=== PATIENT | male | born 1975 | race African-American/Black ===

== ENCOUNTER 2024-12-24 09:05 | Emergency (ER) | payer BC, SELFPAY ==
[2024-12-24 09:13] VITALS: BP 143/98; PULSE 60; O2SAT 98
[2024-12-24 09:17] VITALS: BP 143/98; PULSE 66; RESP 18; TEMP 36.6; O2SAT 97; BMI 23.3
--- NOTE | 2024-12-24 09:18 | ECG_ITS ---
APPROVED REPORT Exam: Resting ECG HR:57 bpm ECG Measurements Heart Rate 57 AXES DE 159 P 73 QRSd 100 QRS 41 QT 399 T 58 QTc 392 Conclusion SINUS BRADYCARDIA INCOMPLETE RIGHT BUNDLE BRANCH BLOCK [90+ ms QRS DURATION, TERMINAL R IN V1/V2, 40+ ms S IN I/aVL/V4/V5/V6] No STEMI Electronically signed by : SANJUANA GUERRA, 12/24/2024 17:12:47
--- NOTE | 2024-12-24 09:28 | CT_ITS ---
PROCEDURE INFORMATION: Exam: CT Abdomen And Pelvis With Contrast Exam date and time: 12/24/2024 9:55 AM Age: 49 years old Clinical indication: Abdominal pain; Additional info: Lower abd pain/diarrhea TECHNIQUE: Imaging protocol: Computed tomography of the abdomen and pelvis with contrast. Radiation optimization: All CT scans at this facility use at least one of these dose optimization techniques: automated exposure control; mA and/or kV adjustment per patient size (includes targeted exams where dose is matched to clinical indication); or iterative reconstruction. Contrast material: ISOVUE; Contrast volume: 75 ml; Contrast route: IV; COMPARISON: No relevant prior studies available. FINDINGS: Lungs: Calcified 1.6 cm granuloma in the left lower lobe posterior to the left ventricle. No airspace consolidation, nodules, or pleural effusions. Liver: No mass. No evidence of fat deposition. No surrounding fluid. Gallbladder and biliary ducts: No calcified stones or wall thickening. No ductal dilation. Pancreas: No masses. No ductal dilation. Spleen: No splenomegaly. No masses or surrounding fluid. Adrenal glands: No mass. Kidneys and ureters: No hydronephrosis, calcified stones, or masses. Stomach and bowel: No intestinal masses, bowel wall thickening, or abnormal dilatation. Appendix: No evidence of appendicitis. Intraperitoneal space: No free air. No masses or significant fluid collection. Vasculature: No abdominal aortic aneurysm. No other significant abnormalities. Lymph nodes: No enlarged lymph nodes. Urinary bladder: No masses or asymmetric wall thickening. Reproductive: No abnormalities as visualized. Bones/joints: No fractures or focal bone lesions. Akon-rj-owvypvqp degenerative disc disease at L4-L5 and L5-S1 causes no spinal stenosis. Soft tissues: No masses or other abnormalities. IMPRESSION: 1. No acute findings in the abdomen and pelvis. No GI tract abnormalities. 2. Calcified granuloma in the left lower lobe.
--- OUTSIDE RECORDS SUMMARY | 2024-12-24 09:28 | XMS_ITS | Encounter Summary ---
Author Organization [employer] ([place], [place], [place], [place]) Address [address] [place] [address] Care Team Providers Care Order To Delivery Supervisor Name Role Phone Mahesh Sanford MD Primary Care Provider [phone] Encounter Details Date Type Department Care Team (Late st Contact Info) Description 08/16/2021 Transcribed Document [facility] [place] [facility] [address] [place] [address] ProviderFred MD [address] [place], [place] [id number] Social History Tobacco Use Types Packs/Day Years Used Date Smoking Tobacco: Never Assessed Food Insecurity Answer Date Recorded Food run out past 12 months Not on file 06/15 Food did not last past 12 months Not on file 07/03/2023 Employment Answer Date Recorded Help finding and keeping a job Not on file 0 07/03/2023 Family and Community Support Answer Keny e Recorded Help with Day to Day Activities Not on file 07/03/2023 Feeling Lonely or Isolated Not on file 07/03 Educational Attainment Answer Date Ignacio rded Speak language other than Eritrean at home Not on file 07/03/2023 Want help with school or training Not on file 07/03/2023 Substance Use Answer Date Recorded Used prescription meds for non-medical reasons N ot on file 07/03/2023 Used illegal drugs past 12 months Not on file 07/03/2023 Sex and Gender Information Value Date Recorded Sex Assigned at Not on file Legal Sex Male 6:06 PM CDT Gender Identity Not on file Sexual Orientation Not on file documented as of this encounter Miscellaneous Notes * Cerner Conversion Note - Historical ProviderMD - 08/16/2021 7:58 AM BUSINESS OFFICE DIRECTOR [facility] [address] [place], [place] [id number] SCOTT SUE :1975 Visit Time:08/16/2021 What to do next Instructions From Your Care Team Diet after Discharge: Resume usual diet as tolerated, Do not drink any alcoholic beverages, Activity after Discharge: Rest and relax today, No strenuous activity Driving after Discharge: Do not drive for 24 hours May Return to Work/School: Tomorrow Notify Provider of: Questions or Concerns, pain, bleeding or fever of 101 Copy of procedure report given to patient If biopsies were taken, office will call or mail results within 7-10 days Follow-Up Appointments Follow Up with RODNEY CLARK MD When Only if needed Where: Medications What How Much When Instructions Next Dose cholecalciferol (Vitamin D3) Weekly Take your medications faithfully. Do NOT skip medication. Do NOT stop taking medications without the direction of a physician. Carry a list of your medications with you at all times, and take this medication list with you to your first follow up visit. Report any side effects. Avoid herbal remedies unless discussed with your physician. As part of your treatment plan, your physician may have prescribed a limited course of a controlled substance. This medication may be given to help people with moderate or severe pain or for other medical conditions, but there are risks involved with treatment. Common side effects may include nausea, constipation, drowsiness, sweating, itching, dry mouth, and rash. More serious side effects may include cognitive and motor impairment, like problems with thinking, concentrating, alertness, and movement (e.g. slowed reflexes), and driving and operating heavy machinery can be dangerous. It is important for you to talk to your physician if you have these side effects or questions. These controlled substances can produce physical dependence and be habit-forming if taken for an extended period of time, which means that the body has gotten used to them and may experience withdrawal symptoms if they are abruptly stopped. Withdrawal symptoms can include runny nose, sweating, goose bumps, diarrhea, abdominal cramping, rapid heartbeat, difficulty sleeping, and nervousness. Please dispose of unused and medications per pharmacy guidance. Education Materials General Anesthesia, Adult General anesthesia is the use of medicines to make a person go to sleep (unconscious) for a medical procedure. General anesthesia must be used for certain procedures, and is often recommended for procedures that: ??? Last a long time. ??? Require you to be still or in an unusual position. ??? Are major and can cause blood loss. The medicines used for general anesthesia are called general anesthetics. As well as making you unconscious for a certain amount of time, these medicines: ??? Prevent pain. ??? Control your blood pressure. ??? Relax your muscles. Tell a health care provider about: ??? Any allergies you have. ??? All medicines you are taking, including vitamins, herbs, eye drops, creams, and rnji-bcg-nktvlcx medicines. ??? Any problems you or family members have had with anesthetic medicines. ??? Types of anesthetics you have had in the past. ??? Any blood disorders you have. ??? Any surgeries you have had. ??? Any medical conditions you have. ??? Any recent upper respiratory, chest, or ear infections. ??? Any history of: ? Heart or lung conditions, such as heart failure, sleep apnea, asthma, or chronic obstructive pulmonary disease (COPD). ? service. ? Depression or anxiety. ??? Any tobacco or drug use, including marijuana or alcohol use. ??? Whether you are or may be . What are the risks? Generally, this is a safe procedure. However, problems may occur, including: ??? Allergic reaction. ??? Lung and heart problems. ??? Inhaling food or liquid from the stomach into the lungs (aspiration). ??? Nerve injury. ??? Dental injury. ??? Air in the bloodstream, which can lead to stroke. ??? Extreme agitation or confusion (delirium) when you wake up from the anesthetic. ??? Waking up during your procedure and being unable to move. This is rare. These problems are more likely to develop if you are having a major surgery or if you have an advanced or serious medical condition. You can prevent some of these complications by answering all of your health care provider's questions thoroughly and by following all instructions before your procedure. General anesthesia can cause side effects, including: ??? Nausea or vomiting. ??? A sore throat from the breathing tube. ??? Hoarseness. ??? Wheezing or coughing. ??? Shaking chills. ??? Tiredness. ??? Body aches. ??? Anxiety. ??? Sleepiness or drowsiness. ??? Confusion or agitation. What happens before the procedure? Staying hydrated Follow instructions from your health care provider about hydration, which may include: ??? Up to 2 hours before the procedure ??? you may continue to drink clear liquids, such as water, clear fruit juice, black coffee, and plain tea. Eating and drinking restrictions Follow instructions from your health care provider about eating and drinking, which may include: ??? 8 hours before the procedure ??? stop eating heavy meals or foods such as meat, fried foods, or fatty foods. ??? 6 hours before the procedure ??? stop eating light meals or foods, such as toast or cereal. ??? 6 hours before the procedure ??? stop drinking milk or drinks that contain milk. ??? 2 hours before the procedure ??? stop drinking clear liquids. Medicines Ask your health care provider about: ??? Changing or stopping your regular medicines. This is especially important if you are taking diabetes medicines or blood thinners. ??? Taking medicines such as aspirin and ibuprofen. These medicines can thin your blood. Do not take these medicines unless your health care provider tells you to take them. ??? Taking vjwa-ucb-wmanwxo medicines, vitamins, herbs, and supplements. Do not take these during the week before your procedure unless your health care provider approves them. General instructions ??? Starting 3???6 weeks before the procedure, do not use any products that contain nicotine or tobacco, such as cigarettes and e-cigarettes. If you need help quitting, ask your health care provider. ??? If you brush your teeth on the morning of the procedure, make sure to spit out all of the toothpaste. ??? Tell your health care provider if you become ill or develop a cold, cough, or fever. ??? If instructed by your health care provider, bring your sleep apnea device with you on the day of your surgery (if applicable). ??? Ask your health care provider if you will be going home the same day, the following day, or after a longer hospital stay. ? Plan to have a responsible adult take you home from the hospital or clinic. ? Plan to have a responsible adult care for you for the time you are told after you leave the hospital or clinic. This is important. What happens during the procedure? You will be given anesthetics through both of the following: ? A mask placed over your nose and mouth. ? An IV in one of your veins. ??? You may receive a medicine to help you relax (sedative). ??? After you are unconscious, a breathing tube may be inserted down your throat to help you breathe. This will be removed before you wake up. ??? An anesthesia specialist will stay with you throughout your procedure. He or she will: ? Keep you comfortable and safe by continuing to give you medicines and adjusting the amount of medicine that you get. ? Monitor your blood pressure, pulse, and oxygen levels to make sure that the anesthetics do not cause any problems. The procedure may vary among health care providers and hospitals. What happens after the procedure? Your blood pressure, temperature, heart rate, breathing rate, and blood oxygen level will be monitored until the medicines you were given have worn off. ??? You will wake up in a recovery area. You may wake up slowly. ??? If you feel anxious or agitated, you may be given medicine to help you calm down. ??? If you will be going home the same day, your health care provider may check to make sure you can walk, drink, and urinate. ??? Your health care provider will treat any pain or side effects you have before you go home. ??? Do not drive or operate machinery until your health care provider says that it is safe. Summary ??? General anesthesia is used to keep you still and prevent pain during a procedure. ??? It is important to tell your health care provider about your medical history and any surgeries you have had, and previous experience with anesthesia. ??? Follow your health care provider's instructions about when to stop eating, drinking, or taking certain medicines before your procedure. ??? Plan to have a responsible adult take you home from the hospital or clinic. This information is not intended to replace advice given to you by your health care provider. Make sure you discuss any questions you have with your health care provider. Document Revised: 02/11/2021 Document Reviewed: 09/12/2020 [employer] Patient Education ?? 2020 [employer]. Colonoscopy, Adult, Care After This sheet gives you information about how to care for yourself after your procedure. Your doctor may also give you more specific instructions. If you have problems or questions, call your doctor. What can I expect after the procedure? After the procedure, it is common to have: ??? A small amount of blood in your poop (stool) for 24 hours. ??? Some gas. ??? Mild cramping or bloating in your belly (abdomen). Follow these instructions at home: Eating and drinking ??? Drink enough fluid to keep your pee (urine) pale yellow. ??? Follow instructions from your doctor about what you cannot eat or drink. ??? Return to your normal diet as told by your doctor. Avoid heavy or fried foods that are hard to digest. Activity ??? Rest as told by your doctor. ??? Do not sit for a long time without moving. Get up to take short walks every 1???2 hours. This is important. Ask for help if you feel weak or unsteady. ??? Return to your normal activities as told by your doctor. Ask your doctor what activities are safe for you. To help cramping and bloating: ??? Try walking around. ??? Put heat on your belly as told by your doctor. Use the heat source that your doctor recommends, such as a moist heat pack or a heating pad. ? Put a towel between your skin and the heat source. ? Leave the heat on for 20???30 minutes. ? Remove the heat if your skin turns bright red. This is very important if you are unable to feel pain, heat, or cold. You may have a greater risk of getting burned. General instructions ??? If you were given a medicine to help you relax (sedative) during your procedure, it can affect you for many hours. Do not drive or use machinery until your doctor says that it is safe. ??? For the first 24 hours after the procedure: ? Do not sign important documents. ? Do not drink alcohol. ? Do your daily activities more slowly than normal. ? Eat foods that are soft and easy to digest. ??? Take skvo-qef-bnpgpcc or prescription medicines only as told by your doctor. ??? Keep all follow-up visits as told by your doctor. This is important. Contact a doctor if: ??? You have blood in your poop 2???3 days after the procedure. Get help right away if: ??? You have more than a small amount of blood in your poop. ??? You see large clumps of tissue (blood clots) in your poop. ??? Your belly is swollen. ??? You feel like you may vomit (nauseous). ??? You vomit. ??? You have a fever. ??? You have belly pain that gets worse, and medicine does not help your pain. Summary ??? After the procedure, it is common to have a small amount of blood in your poop. You may also have mild cramping and bloating in your belly. ??? If you were given a medicine to help you relax (sedative) during your procedure, it can affect you for many hours. Do not drive or use machinery until your doctor says that it is safe. ??? Get help right away if you have a lot of blood in your poop, feel like you may vomit, have a fever, or have more belly pain. This information is not intended to replace advice given to you by your health care provider. Make sure you discuss any questions you have with your health care provider. Document Revised: 04/06/2020 Document Reviewed: 12/26/2019 [employer] Patient Education ?? 2020 [employer] Emergency Awareness and Preventative Care STROKE is an EMERGENCY Every Minute Counts Act FAST and Check for these signs: FACE Does the face look uneven? ARM Does one arm drift down? SPEECH Does their speech sound strange? TIME Call at any sign of stroke Stroke Risk Factors Atrial Fibrillation (irregular heartbeat) Diabetes Family history of stroke Heart Disease Heavy alcohol use High Blood Pressure High Cholesterol Physical inactivity and obesity Smoking Cigarette Smoking The facts are clear, cigarette smoking will shorten your life. Smoking can cause many illnesses along the way. As a healthcare provider, we recommend that you stop smoking. Assistance with quitting is available by contacting 2-636-AIIK-NOW. This is a free resource providing counseling, support, and referral. Or you may contact your personal physician. National Suicide Prevention Lifeline: The National Suicide Prevention Lifeline is a national network of local crisis centers that provides free and confidential emotional support to people in suicidal crisis or emotional distress 24 hours a day, 7 days a week. Don't Wait! Stop a Heart Attack Before it Starts What is a heart attack? A heart attack is damage or to a part of the heart from severely decreased or lack of blood flow to the heart. Over time, arteries can become narrow from the buildup of fat and cholesterol, which is called plaque. The plaque can rupture causing a blood clot to form. When the blood clot forms, the artery can become severely narrowed or completely blocked, causing a heart attack. Heart attack is the leading cause of in the [place]. 85% of muscle damage occurs within the first 2 hours. Delay in the recognition of heart attack symptoms increases the chances of . Know the early symptoms of a heart attack: Nausea Feeling of fullness in chest Jaw Pain Pain that travels down one or both arms Fatigue/being tired Anxiety Back Pain Chest pressure, squeezing, or discomfort Shortness of breath Sweating, or a cold sweat Feeling of impending doom There are unusual signs of a heart attack, too! Women, the elderly, and diabetics may present with atypical symptoms: Fainting/dizziness Weakness Confusion Risk Factors for a Heart Attack Some heart disease risk factors, such as age and family history, cannot be changed. Others, like smoking and lack of exercise, can be changed. Smoking High Cholesterol High Blood Pressure Family History Obesity Age Gender (Males are at higher risk) Lack of Exercise Diabetes Diet Stress Excessive Alcohol Intake If you or someone you know is experiencing the signs and symptoms of a heart attack, DON???T DELAY. Call immediately and seek help. If someone collapses, perform CPR! Do not attempt to drive if you are having symptoms of heart attack. Hands-Only CPR Why Hands-Only CPR? Hands-Only CPR has been shown to be as effective as conventional CPR for cardiac arrests that occur outside of a hospital. Survival depends on immediately receiving CPR from someone nearby. How do you perform Hands-Only CPR? There are two easy steps: Call if you see a teen or adult collapse Push hard and fast in the center of the chest at a beat of 100 beats per minute. Save a life! 4 WAYS TO GET AHEAD OF SEPSIS SEPSIS is a MEDICAL EMERGENCY. Time matters! Infections put you and your family at risk for a life-threatening condition called sepsis. Sepsis is the body's extreme response to an infection. It is life-threatening, and without timely treatment, sepsis can rapidly lead to tissue damage, organ failure, and . Sepsis happens when an infection you already have-in your skin, lungs, urinary tract or somewhere else-triggers a chain reaction throughout your body. 1 PREVENT INFECTIONS Take good care of chronic conditions. Talk to your doctor about getting the recommended vaccines. 2 PRACTICE GOOD HYGIENE Wash your hands frequently. Keep cuts or open sores clean and covered until they are healed. 3 KNOW THE SYMPTOMS Confusion or disorientation Shortness of breath High heart rate Fever, shivering, or feeling very cold Extreme pain or discomfort Clammy or sweaty skin 4 ACT FAST Get medical care IMMEDIATELY if you suspect sepsis or if you have an infection that is not getting better or is getting worse. To learn more about sepsis and how to prevent infections, visit www.cdc.gov/sepsis. Test Results Laboratory or Other Results This Visit (last charted value for your 08/16/2021 visit) Microbiology 08/14/2021 9:00 AM SARS-CoV-2 (COVID19 PCR): Negative Patient Name:LINETTE SCOTT ALFREDO I have received this information and was given the opportunity to ask questions. Patient/Instructor Industrial Design Name: Patient/Instructor Industrial Design Signature: Relationship to Patient: Clinician/Hospital Instructor Industrial Design Signature: Date: Electronically signed by Crystal, [facility] Conversion Machine Molder S[employer]ze Cerner at 09/30/2022 6:06 PM CDT documented in this encounter Plan of Treatment Not on file documented as of this encounter Visit Diagnoses Not on filedocumented in this encounter Care Teams Order To Delivery Supervisor Relationship Specialty Start Date End Date Mahesh Sanford MD [address] [facility] [address] [place] [address] PCP - General Family Medicine 05/29/22 documented as of this encounter
--- OUTSIDE RECORDS SUMMARY | 2024-12-24 09:28 | XMS_ITS | Encounter Summary ---
Author Organization [employer] ([place], [place], [place], [place]) Address [address] [place] [address] Care Team Providers Care Soft Sugar Supervisor Name Role Phone Mahesh Sanford MD Primary Care Provider [phone] Encounter Details Date Type Department Care Team (Late st Contact Info) Description 08/16/2021 Transcribed Document [facility] [place] [address] [place] [address] ProviderFred MD [address] [place], [place] [id number] Social History Tobacco Use Types Packs/Day Years [...] Date Ignacio rded Speak language other than Romanian at home Not on file 07/03/2023 Want [...] Conversion Note - Historical ProviderMD - 08/16/2021 8:03 AM ACCOUNTS PAYABLE ASSISTANT [facility] Endo PACU Summary Primary Physician: RODNEY CLARK MD Finalized Date/Time: 08/16/21 08:41:57 Pt. Name: SCOTT SUE /Sex: 1975 Male Med Rec #: [id number] Physician: RODNEY CLARK MD Financial #: [id number] Pt. Type: O Room/Bed: END/ Admit/Disch: 08/16/21 06:51:00 - Institution: [facility] PACU Case Times Entry 1 In PACU I 08/16/21 08:26:00 Ready for PACU 08/16/21 08:40:00 Discharge Discharge from PACU 08/16/21 08:40:00 I Last Modified By: Aleisha Acosta RN-PATIENT CARE BEDSIDE NON-EXEMPT 08/16/21 08:38:06 Finalized By: Aleisha Acosta RN-PATIENT CARE BEDSIDE NON-EXEMPT Document Signatures Signed By: Aleisha Acosta RN-PATIENT CARE BEDSIDE NON-EXEMPT 08/16/21 08:41 Electronically signed by Crystal [facility] Conversion Tobacco Farmworker Cerner at 09/30/2022 6:00 PM CDT documented in this encounter Plan of Treatment Not on file documented as of this encounter Visit Diagnoses Not on filedocumented in this encounter Care Teams Soft Sugar Supervisor Relationship Specialty Start Date End Date Mahesh Sanford MD [address] [phone] PCP - General Family Medicine 05/29/22 documented as of this encounter
--- OUTSIDE RECORDS SUMMARY | 2024-12-24 09:28 | XMS_ITS | Encounter Summary ---
Author Organization [facility] ([place], [place], [place], [place]) Address [address] [place] [address] Care Team Providers Care Title Curator Name Role Phone Mahesh Sanford MD Primary Care Provider [phone] Encounter Details Date Type Department Care Team (Late st Contact Info) Description 08/16/2021 Transcribed Document [facility] [place] Family Medicine [address] [place] [address] ProviderFred MD [address] [place], [place] [id number] Social History Tobacco Use Types Packs/Day Years [...] Date Ignacio rded Speak language other than Japanese at home Not on file 07/03/2023 Want [...] Notes * Cerner Conversion Note - Historical Provider, - 08/16/2021 8:03 AM REGIONAL PLANNER [facility] Endo IntraOp Summary Primary Physician: RODNEY CLARK MD Finalized Date/Time: 08/16/21 08:23:43 Pt. Name: STEPHANIE SUE /Sex: 1975 Male Med Rec #: [id number] Physician: RODNEY CLARK MD Financial #: [id number] Pt. Type: O Room/Bed: END/ Admit/Disch: 08/16/21 06:51:00 - Institution: [facility] Endo - Case Attendance Entry 1 Entry 2 Entry 3 Case Attendee RODNEY CLARK MD MILLER, MELISSA A, RN HERNÁN JACOBSON, Program Technician Role Performed Surgeon/Proceduralist, Reproduction Production Manager, First Scrub, First First Time In 08/16/21 07:56:00 08/16/21 07:56:00 08/16/21 07:56:00 Time Out 08/16/21 08:26:00 08/16/21 08:26:00 08/16/21 08:26:00 Procedure Colonoscopy, Colon Colonoscopy, Colon Colonoscopy, Colon Polypectomy Polypectomy Polypectomy Other Attendee Superficial Wound Closed By: Last Modified By: PRINCESS PERRY, RN PRINCESS PERRY, PRINCESS MERCADO RN 08/16/21 08:23:41 08/16/21 08:23:41 08/16/21 08:23:41 Entry 4 Entry 5 Case Attendee RAY CULP ARRINGTON, ASHLEY, YISSEL WERNER-ANS Role Performed Anesthesiologist of CONSTRUCTION EQUIPMENT MECHANIC HELPER/Nurse Electric Refrigerator Preparer Record Time In 08/16/21 07:56:00 08/16/21 07:56:00 Time Out 08/16/21 08:26:00 08/16/21 08:26:00 Procedure Colonoscopy, Colon Colonoscopy, Colon Polypectomy Polypectomy Other Attendee Superficial Wound Closed By: Last Modified By: PRNICESS PERRY RN MILLER, MELISSA A, RN 08/16/21 08:23:41 08/16/21 08:23:41 [facility] Endo - Case Attendance Audit 08/16/21 08:23:41 Care Trainer: MARLENE Modifier: MILLERMA 1 <+> Time Out 1 <*> Procedure Colonoscopy, Colon Polypectomy 2 <+> Time Out 2 <*> Procedure Colonoscopy, Colon Polypectomy 3 <+> Time Out 3 <*> Procedure Colonoscopy, Colon Polypectomy 4 <+> Time Out 4 <*> Procedure Colonoscopy, Colon Polypectomy 5 <+> Time Out 5 <*> Procedure Colonoscopy, Colon Polypectomy 08/16/21 08:19:36 Care Trainer: MARLENE Modifier: MILLERMA 1 <+> Time In 1 <*> Procedure Colonoscopy 2 <+> Time In 2 <*> Procedure Colonoscopy 3 <+> Time In 3 <*> Procedure Colonoscopy 4 <+> Time In 4 <*> Procedure Colonoscopy 5 <+> Time In 5 <*> Procedure Colonoscopy 08/16/21 07:58:15 Care Trainer: RUBI Modifier: MILLERMA <+> 2 Case Attendee <+> 2 Role Performed <+> 2 Procedure <+> 3 Case Attendee <+> 3 Role Performed <+> 3 Procedure <+> 4 Case Attendee <+> 4 Role Performed <+> 4 Procedure <+> 5 Case Attendee <+> 5 Role Performed <+> 5 Procedure [facility] Endo - Case times Entry 1 Patient In Room Time 08/16/21 07:56:00 Out Room Time 08/16/21 08:26:00 Anesthesia Start Time 08/16/21 07:56:00 Stop Time 08/16/21 08:26:00 Surgery / Procedure Times Start Time 08/16/21 08:03:00 Stop Time 08/16/21 08:23:00 Last Modified By: PRINCESS PERRY RN 08/16/21 08:23:29 [facility] Endo - Case times Audit 08/16/21 08:23:29 Care Trainer: MARLENE Modifier: MILLERMA <+> 1 Out Room Time <+> 1 Stop Time <+> 1 Stop Time 08/16/21 08:03:54 Care Trainer: MARLENE Modifier: ORLANDOMA <+> 1 Start Time [facility] Endo - Cultures and Spec Summary Entry 1 Cultrures and Specimens Specimen Ordered: Yes Test(s) Routine/Path-Lab Requested/Final Disposition Last Modified By: PRINCESS PERRY RN 08/16/21 08:20:01 [facility] Endo - Delays Entry 1 Delay Reason Other, No Delay Duration 0 Minute(s) Last Modified By: PRINCESS PERRY RN 08/16/21 07:58:25 [facility] Endo - Departure from OR Entry 1 Integumentary Assessment Integumentary WDL Assessment WDL Transfer/Handoff Transfer to PACU Phase I Handoff Method Bedside/Face to face Post-op Transport Stretcher/Gurney Via Patient Transport PRINCESS PERRY RN, Accompanied by SAMMY ALLEN APRN Last Modified By: PRINCESS PERRY RN 08/16/21 07:58:27 [facility] Endo - Endoscopy Details Entry 1 Abdomen Procedure Soft, Non-Tender Assessment Procedure Abdomen 08/16/21 07:58:00 Assessment D/T Radio Frequency Ablation Abdominal Pressure Last Modified By: PRINCESS PERRY RN 08/16/21 07:58:30 [facility] Endo - Fire Risk Assessment Entry 1 Fire Info Surgical Site or 0- No Incision Above the Xyphoid Open O2 Source 1- Yes (Mask or Cannula) Available Ignition 1- Yes (ESU, Laser, Light Source) Fire Risk 2 Assessment Score Fire Score Fire Risk Yes Assessment Complete Fire Risk PRINCESS PERRY RN Assessment Verified By Fire Risk 08/16/21 07:58:00 Assessment Verified Date/Time Fire Risk High Risk Protocol Yes Implemented Standard Fire Yes Safety Precautions Followed Last Modified By: PRINCESS PERRY RN 08/16/21 07:58:33 [facility] Endo - General Case Inside Barrel Polisher 1 Case Information OR Endo 03 [facility] Case Level 1 Room Verified Yes Wound Class No Incision Specialty Gastroenterology Anesthesia Type General ASA Class 2 Diagnosis Preop Diagnosis screening Postop Same As Preop No Postop Diagnosis diverticular disease Wound Class Definitions Last Modified By: PRINCESS PERRY RN 08/16/21 08:05:04 [facility] Endo - General Case Data Audit 08/16/21 08:05:04 Care Trainer: MARLENE Modifier: MARLENE 1 <*> Postop Same As Preop No 1 <*> Postop Diagnosis diverticular disease [facility] Endo - Intraoperative Assessment Entry 1 Valid History / Yes Physical in Chart Preoperative Yes Checklist Reviewed/Evaluated Patient is Latex No Sensitive Level of WDL Consciousness (WDL = Alert, Oriented to Person, Place, and Time) Present Upon IVs Arrival to OR Last Modified By: PRINCESS PERRY RN 08/16/21 07:58:50 [facility] Endo - Intraoperative Equipment Entry 1 Equipment Intraop Monitoring Electrocardiogram Three lead placement (ECG) Electrode Placement Blood Pressure Arm, left upper Location Pulse Oximeter Hand, right Probe Site Antiembolic Devices Scopes Flexible Endoscopes Colonoscope Used Scope Serial J Number/Identificatio n Number Photo/Video Documentation Photo Yes Video No Last Modified By: PRINCESS PERRY RN 08/16/21 07:58:56 [facility] Endo - Patient Positioning Entry 1 Procedure Colonoscopy, Colon Polypectomy Body Position Lateral, right side up Left Arm Position Resting at side Right Arm Position Resting at side Left Leg Position Other Right Leg Position Other Position Comments Right leg over left leg, uncrossed Feet Uncrossed Yes Pressure Points Yes Checked Positioned By PRINCESS PERRY RN Position Verified Positioning Yes Verified by Surgeon Last Modified By: PRINCESS PERRY RN 08/16/21 08:19:37 [facility] Endo - Patient Positioning Audit 08/16/21 08:19:37 Care Trainer: MARLENE Modifier: MARLENE 1 <*> Procedure Colonoscopy [facility] Endo - Sign In Entry 1 Patient, Site, Yes Procedure Identified Surgical Consent Yes Confirmed Surgical Site N/A Marked by person performing procedure Airway Hypothermia Risk No Warming Measures No Taken Last Modified By: PRINCESS PERRY RN 08/16/21 07:59:04 [facility] Endo - Sign Out Entry 1 RN Confirmation Surgical Yes Procedure(s) Identified Instrument, Sponge N/A and Sharps Counts Correct/Documented Equipment Problems N/A Documented Specimen Labeled Yes Correctly Urinary Catheter N/A Documented in IView Wound Yes classification reviewed, verified and updated post case in both the General Case Data and Procedure segments Safety Checklist Yes Elements Complete? RN Sign Out PRINCESS PERRY RN Signature RN Sign Out 08/16/21 08:26:00 Signature Date/Time Plan of Care Outcome - Fire Risk OUTCOME STATEMENT: Goal met Patient is free from injury related to surgical fire Plan of Care Outcome - Pt Positioning OUTCOME STATEMENT: Goal met Absence of signs and symptoms of positioning injury. Plan of Care Outcome - Skin Prep OUTCOME STATEMENT: Goal met Intraoperative care is consistent with measures to prevent infection Plan of Care Outcome - Xray/Images OUTCOME STATEMENT: N/A Absence of observable signs or symptoms of radiation injury Plan of Care Outcome - Counts OUTCOME STATEMENT: N/A Absence of signs and symptoms of injury related to extraneous objects Last Modified By: PRINCESS PERRY RN 08/16/21 08:23:37 [facility] Endo - Surgical Procedures Entry 1 Entry 2 Procedure Colonoscopy Colon Polypectomy Modifiers Additional rectal polyp Procedure Description Primary Procedure Yes No Primary Surgeon RODNEY CLARK MD ASLAM, BILAL, MD Start 08/16/21 08:03:00 08/16/21 08:03:00 Stop 08/16/21 08:23:00 08/16/21 08:23:00 Physician States 08/16/21 08:08:00 08/16/21 08:08:00 Cecum Reached Anesthesia Type [facility] Specialty Gastroenterology Gastroenterology Wound Class No Incision No Incision Last Modified By: PRINCESS PERRY RN MILLER, MELISSA A, RN 08/16/21 08:23:38 08/16/21 08:23:38 [facility] Endo - Surgical Procedures Audit 08/16/21 08:23:38 Care Trainer: MILLERMA Modifier: MILLERMA <+> 1 Stop <+> 2 Stop 08/16/21 08:22:41 Care Trainer: MILLERMA Modifier: MILLERMA 2 <*> Procedure Colon Polypectomy 2 <+> Additional Procedure Description 08/16/21 08:19:34 Care Trainer: MILLERMA Modifier: MILLERMA <+> 2 Procedure <+> 2 Primary Procedure <+> 2 Primary Surgeon <+> 2 Specialty <+> 2 Start <+> 2 Wound Class <+> 2 Anesthesia Type <+> 2 Physician States Cecum Reached 08/16/21 08:16:20 Care Trainer: MILLERMA Modifier: MILLERMA 1 <*> Procedure Colonoscopy 1 <+> Physician States Cecum Reached 08/16/21 08:04:54 Care Trainer: MILLERMA Modifier: MILLERMA <+> 1 Start [facility] Endo - Time Out Entry 1 Procedure to be Colonoscopy, Colon Performed Polypectomy Time Out Time Out Pause Time 08/16/21 07:59:00 All activity Yes suspended (unless life threatening emergency) Team Verbally Correct patient Confirms Information identity, Consent form is present and accurate, Agreement on the procedure to be done, Correct patient position, Relevant images/results properly labeled/appropriately displayed, Reconcile problems if responses among team members differ Antibiotic N/A Prophylaxis Administered Or In Progress Within the Last 60 Minutes Beta Aileen N/A Administered Venous N/A Thromboembolism Prophylaxis Required Anticipated Critical Events Surgeon None expected Last Modified By: PRINCESS PERRY RN 08/16/21 08:19:37 [facility] Endo - Time Out Audit 08/16/21 08:19:37 Care Trainer: MARLENE Modifier: MARLENE 1 <*> Procedure to be Performed Colonoscopy Case Comments <None> Finalized By: PRINCESS PERRY, RN Document Signatures Signed By: PRINCESS PERRY RN 08/16/21 08:23 Electronically signed by Crystal [facility] Conversion Repairer Finished Metal Cerner at 09/30/2022 6:00 PM CDT documented in this encounter Plan of Treatment Not on file documented as of this encounter Visit Diagnoses Not on filedocumented in this encounter Care Teams Title Curator Relationship Specialty Start Date End Date Mahesh Sanford MD [address] [phone] PCP - General Family Medicine 05/29/22 documented as of this encounter
--- OUTSIDE RECORDS SUMMARY | 2024-12-24 09:28 | XMS_ITS | Clinical Summary ---
Author Organization [facility] Address [address] [place] [id number] Care Team Providers Care Rubber Goods Finisher Name Role Phone Unavailable Primary Care Provider Unavailabl e Source Comments This information has been disclosed to you from confidential records protectedfrom disclosure by state law. You shall make no further disclosure of thisinformation without the specific, written, and informed release of theindividual to whom it pertains, or as otherwise permitted by law. A generalauthorization for the release of medical or other information is not sufficientfor the purposes of therelease of HIV test results or diagnoses. [id number] Social History Tobacco Use Types Packs/Day Years Used Date Smoking Tobacco: Never Assessed Sex and Gender Information Value Date Recorded Sex Assigned at Not on file Legal Sex Male 2:31 PM EST Gender Identity Not on file Sexual Orientation Not on file Plan of Treatment Not on file
--- OUTSIDE RECORDS SUMMARY | 2024-12-24 09:28 | XMS_ITS | Referral Summary ---
Author Organization [employer] ([place], [place], [place], [place]) Address [address] [place] [address] Care Team Providers Care Dry House Wheeler Name Role Phone Mahesh Sanford MD Primary Care Provider [phone] Allergies No known active allergies Medications No known medications Active Problems Problem Noted Date Diagnosed Date Annual physical exam 05/30/2022 Vitamin D deficiency 05/30/2022 Immunizations Name Administration Dates Next Due Influenza Four-QIV 6MO+ PF IM ([id number]) Social History Tobacco Use Types Packs/Day Years Used Date Smoking Tobacco: Former Smokeless Tobacco: Never Alcohol Use Standard Drinks/Week Comments Yes 4 (1 standard drink = 0.6 oz pur e alcohol) daily Food Insecurity Answer Date Recorded Food run [...] Date Ignacio rded Speak language other than Estonian at home Not on file 07/03/2023 Want [...] on file Sexual Orientation Not on file Last Filed Vital Signs Vital Sign Reading Time Taken Comments Blood Pressure 117/80 05/30/2022 12:01 PM EST Pulse 51 05/30/2022 12:01 PM EST Temperature 36.3 C (97.4 F) 05/30/2022 12:01 PM EST Respiratory Rate - - Oxygen Saturation 97% 05/30/2022 12:01 PM EST Inhaled Oxygen Concentration - - Weight 83.6 kg (184 lb 3.2 oz) 05/30/2022 12:01 PM EST Height 188 cm (6' 2 ) 05/30/2022 12:01 PM EST Body Mass Index 23.65 05/30/2022 12:01 PM EST Plan of Treatment Not on file Procedures Procedure Name Priority Date/Time Associated Diagnosis Comments LIPID PANEL Routine 05/30/2022 1:22 PM EST Annual physical exam from Last 3 Months or Most Recently Relevant to Health Maintenance Results * (ABNORMAL) Lipid panel (05/30/2022 1:22 PM EST) [facility] Cholesterol, Total 193 100 - 199 mg/dL [facility] Triglycerides 67 0 - 149 mg/dL [facility] HDL Cholesterol 76 >39 mg/dL [facility] VLDL Cholesterol Rohith 12 5 - 40 mg/dL [facility] LDL Calculated 105(H) 0 - 99 mg/dL [facility] Blood 05/30/2022 1:22 PM EST 05/30/2022 Narrative [facility] - 05/31/2022 7:07 AM EST Performed at: 01 - [facility] [address] [id number] Dandy Operator: Davi Schaefer PhD, Phone: [phone] us Mahesh Sanford MD LAB BLOOD ORDERABLES Final Resul t [facility] from Last 3 Months or Most Recently Relevant to Health Maintenance Insurance [facility] Care Teams Dry House Wheeler Relationship Specialty Start Date End Date Mahesh Sanford MD [address] [phone] PCP - General Family Medicine 05/29/22
--- OUTSIDE RECORDS SUMMARY | 2024-12-24 09:28 | XMS_ITS | Encounter Summary ---
Author Organization [employer] ([place], [place], [place], [place]) Address [address] [place] [address] Care Team Providers Care Skin Washer Name Role Phone Mahesh Sanford MD Primary Care Provider Encounter Details Date Type Department Care Team (Late st Contact Info) Description 08/16/2021 Transcribed Document [facility] [place] Family Medicine [address] [place] [address] ProviderFred MD [address] [place], [place] [id number] Social History Tobacco Use Types Packs/Day Years [...] Date Ignacio rded Speak language other than [place] Verdean at home Not on file 07/03/2023 Want [...] Conversion Note - Historical ProviderMD - 08/16/2021 8:00 AM SCHEDULE CLERK [facility] Endo PreOp Summary Primary Physician: RODNEY CLARK MD Finalized Date/Time: 08/16/21 07:30:21 Pt. Name: SCOTT SUE /Sex: 1975 Male Med Rec #: [id number] Physician: RODNEY CLARK MD Financial #: [id number] Pt. Type: O Room/Bed: END/ Admit/Disch: 08/16/21 06:51:00 - Institution: [facility] Endo PreOp Case Times Entry 1 In Preop 08/16/21 06:54:00 Ready for Holding n/a Room Patient Ready for 08/16/21 07:27:00 Surgery Patient Out of Preop 08/16/21 07:27:00 Patient Out of n/a Holding Room Last Modified By: ANAY CEDEÑO RN, Registered Nurse 08/16/21 07:29:56 [facility] Endo PreOp Case Times Audit 08/16/21 07:29:56 Graphotype Operator: TIFFANYCOLEMAN Modifier: TIFFANYCOLEMAN <+> 1 Patient Out of Preop <+> 1 Patient Ready for Surgery Finalized By: ANAY CEDEÑO RN, Registered Nurse Document Signatures Signed By: ANAY CEDEÑO RN, Registered Nurse 08/16/21 07:30 Electronically signed by Crystal [facility] Conversion Drapery Rod Assembler Cerner at 09/30/2022 6:16 PM CDT documented in this encounter Plan of Treatment Not on file documented as of this encounter Visit Diagnoses Not on filedocumented in this encounter Care Teams Skin Washer Relationship Specialty Start Date End Date Mahesh Sanford MD [address] [phone] PCP - General Family Medicine 05/29/22 documented as of this encounter
--- OUTSIDE RECORDS SUMMARY | 2024-12-24 09:28 | XMS_ITS | Encounter Summary ---
Author Organization [employer] ([place], [place], [place], [place]) Address [address] [place] [address] Care Team Providers Care Insurance Associate Name Role Phone Mahesh Sanford MD Primary Care Provider [phone] Encounter Details Date Type Department Care Team (Late st Contact Info) Description 08/16/2021 Transcribed Document [facility] [place] Family Medicine [address] [place] [address] ProviderFred MD [address] [place], [place] [id number] Social History Tobacco Use Types Packs/Day Years [...] Date Ignacio rded Speak language other than [place] Korean at home Not on file 07/03/2023 Want [...] Conversion Note - Historical Provider, - 08/16/2021 7:18 AM HOT ROLL LAMINATOR Pre Procedure Adult Entered On: 08/16/2021 7:23 EST Performed On: 08/16/2021 7:18 EST by ANAY CEDEÑO RN, Registered Nurse Height and Weight, Clinical Dosing Height Source : Stated Height Entry Format : [place] Height, Feet : 6 ft(Converted to: 183 cm, 72 Inch) Height, Inches : 2 Inch(Converted to: 0 ft 2 Inch, 5.08 cm) Clinical Height : 187.96 cm Weight Source : Standing scale Weight Entry Format : [place] Clinical Dosing Weight : 85.63 kg Weight, Pounds : 188 lb Weight, Ounces : 6 oz Body Surface Area (BSA) : 2.12 m2 Body Mass Index : 24.2 kg/m2 (HI) [place] Body Weight : 81 kg ANAY CEDEÑO RN, Registered Nurse - 08/16/2021 7:18 EST Health Histories Smoking Status : Former smoker, quit more than 30 days ago Smokeless Tobacco Status : Smokeless tobacco user within last 30 days Desires Tobacco Cessation Medication : No Reason for No Tobacco Cessation Medication : ED/procedural patient only ANAY CEDEÑO RN, Registered Nurse - 08/16/2021 7:18 EST Social History (As Of: 08/16/2021 07:23:32 EST) Home/Environment: Living situation: Home/Independent. (Last Updated: 01/03/2017 08:08:02 EDT by ELPIDIO FIGUEROA PA-C) Employment/School: Employed (Last Updated: 01/03/2017 08:08:07 EDT by ELPIDIO FIGUEROA PA-C) Infectious Disease History Does patient have symptoms of COVID-19? : No Has the Patient Been Tested for COVID-19 in the last 14 days? : Yes, Patient stated results Negative Does the Patient state known exposure to a COVID-19 positive case in the last 14 days? : No Patient Vaccinated for COVID-19 : Partially vaccinated or need booster Does Patient want a COVID-19 Vaccine? : No ANAY CEDEÑO RN, Registered Nurse - 08/16/2021 7:18 EST Infectious Disease Risk Screening Grid Cough < 2 wks of unknown origin : NO Cough > 2 weeks : NO Blood in Sputum : NO Fever or self-reported Fever : NO Rash of unknown origin : NO Headache : NO Stiff neck : NO Night Sweats : NO Unexplained Weight Loss : NO Diarrhea (3 episode per day) : NO ANAY CEDEÑO RN, Registered Nurse - 08/16/2021 7:18 EST Physical contact outside [place] in the last 30 days : No Hospitalized in Foreign Country : No Infectious Disease History : None INF Disease TB Screening Calc : 0 INF Disease Recent Travel Calc : 0 ANAY CEDEÑO RN, Registered Nurse - 08/16/2021 7:18 EST COVID19 PreProcedure Screening Is this an Emergent or Add on Procedure? : No Date PreProcedure COVID-19 test known? : Yes Date of PreProcedure COVID-19 : 08/14/2021 EST Has patient been isolated since the test : Yes Exposed to COVID19 symptoms since test? : No ANAY CEDEÑO RN, Registered Nurse - 08/16/2021 7:18 EST Anesthesia/Transfusion History Family History of Anesthesia Reaction : No prior transfusion(s) Transfusion History : Prior anesthesia without reaction Family History of Anesthesia Reaction : None ANAY CEDEÑO RN, Registered Nurse - 08/16/2021 7:18 EST Functional Assessment Living Situation : Home Current Home Treatments : None ANAY CEDEÑO RN, Registered Nurse - 08/16/2021 7:18 EST [place] Suicide Severity Rating Scale (C-SSRS) CSSRS Past Month Wish to be : No CSSRS Past Month Suicidal Thoughts : No CSSRS Lifetime Suicide Behavior : No Suicide Severity Rating Score : 0 Suicide Severity Rating : No Additional Care Required at this time ANAY CEDEÑO RN, Registered Nurse - 08/16/2021 7:18 EST Psychosocial History Currently in Unsafe Situation : No ANAY CEDEÑO RN, Registered Nurse - 08/16/2021 7:18 EST Advance Directive Patient has Advance Directive *Q : No, patient refuses Advance Directive information ANAY CEDEÑO RN, Registered Nurse - 08/16/2021 7:18 EST General Info Want Family/Rep/Phys Notified of Admit : Yes Name/Contact Info Fam/Rep Notified Adm : Gemini Lorenzo Name/Contact Info Physician Notified Adm : Mahesh Sanford Emergency Contact #1 : Gemini Lorenzo Emergency Contact #1 Emergency Contact #1 Relationship : spouse Emergency Contact #2 : . Emergency Contact #2 Phone Number : . Emergency Contact #2 Relationship : . Primary Language : [place] Communication Barrier : None Supply Technician Needed : No ANAY CEDEÑO RN, Registered Nurse - 08/16/2021 7:18 EST Sleep Apnea Risk Assmt Hx of Obstructive Sleep Apnea Diagnosis : No Snore Loudly : No Tired, Fatigued, or Sleepy During Day : No Observed Stopping Breathing During Sleep : No Have/Are Being Treated for Hypertension : No BMI Greater Than 35 kg/m2 : No Age over 50 Years Old : No Neck Circumference Greater Than 40 cm : No Gender Male : Yes STOP-BANG Sleep Apnea Risk Level Score : 1 ANAY CEDEÑO RN, Registered Nurse - 08/16/2021 7:18 EST Doug Scale Doug Sensory Perception : No impairment Doug Moisture : Rarely moist Doug Activity : Walks frequently Doug Mobility : No limitation Doug Nutrition : Adequate Doug Friction and Shear : No apparent problem Doug Score : 22 ANAY CEDEÑO RN, Registered Nurse - 08/16/2021 7:18 EST Fall Risk Scales ABCs Fall Injury Risk Identification : None WOFLF Hx Falls Immediate/Within 3 Months : No Wolff Secondary Diagnosis : No WOLFF Use of Ambulatory Aid : None WOLFF IV Therapy or IV Access : Yes Wolff Gait/Transferring : Normal, bedrest, immobile Wolff Mental Status : Oriented to own ability Wolff Fall Risk Score : 20 WOLFF Fall Scale Risk Level : 0-24 Low Risk [place] Fall Interventions : Adequate lighting, Call device within reach, Non-slip footwear, Upper side-rails up, Wheels locked ANAY CEDEÑO RN, Registered Nurse - 08/16/2021 7:18 EST Valuables and Belongings Valuables and Belongings : Clothing Clothing : Common streetwear Clothing Disposition : With family ANAY CEDEÑO RN, Registered Nurse - 08/16/2021 7:18 EST documented in this encounter Plan of Treatment Not on file documented as of this encounter Visit Diagnoses Not on filedocumented in this encounter Care Teams Insurance Associate Relationship Specialty Start Date End Date Mahesh Sanford MD [address] [phone] PCP - General Family Medicine 05/29/22 documented as of this encounter
--- OUTSIDE RECORDS SUMMARY | 2024-12-24 09:28 | XMS_ITS | Clinical Summary ---
Author Organization [employer] ([place], [place], [place], [place]) Address [address] [place] [address] Care Team Providers Care Instructor Kindergarten Name Role Phone Mahesh Sanford MD Primary Care Provider [phone] Allergies No known active allergies Medications No known medications Active Problems Problem Noted Date Diagnosed Date Annual physical exam 05/30/2022 Vitamin D deficiency 05/30/2022 Immunizations Name Administration Dates Next Due Influenza Four-QIV 6MO+ PF IM ([id number]) Social History Tobacco Use Types Packs/Day Years [...] Date Ignacio rded Speak language other than Sami at home Not on file 07/03/2023 Want [...] 05/30/2022 12:01 PM EST Plan of Treatment Health Maintenance Due Date Last Done Comments CT Colonography 1974 Colonoscopy 1974 Colorectal Cancer Screening 1974 FOBT/FIT 1974 Fit-DNA (Cologuard) 1974 Sigmoidoscopy 1974 Depression Screening (12+) 1986 HIV Screening 1989 Hepatitis C Screening 1992 Tobacco Cessation Counseling and Screening (12+) 05/30/2023 05/30/2022 COVID-19 VACCINE ( season) 2024 10/03/2020, 09/06/2020, 08/15/2020 Pneumococcal 50+ years (1 of 1 - PCV) 2024 Shingles Vaccine (Zoster) (1 of 2) 2024 Influenza Vaccine (#1) 2025 05/30/2022, 2017 Lipid Panel 05/30/2027 05/30/2022 DTAP/TDAP/TD VACCINES (2 - T d or Tdap) 08/03/2027 08/03/2017 Procedures Procedure Name Priority Date/Time Associated Diagnosis Comments LIPID PANEL Routine 05/30/2022 1:22 PM EST Annual physical exam from Last 3 Months or Most Recently Relevant to Health Maintenance Results * (ABNORMAL) Lipid panel (05/30/2022 1:22 PM EST) Cholesterol, Total 193 100 - 199 mg/dL [facility] Triglycerides 67 0 - 149 mg/dL [facility] HDL Cholesterol 76 >39 mg/dL [facility] VLDL Cholesterol Rohith 12 5 - 40 mg/dL [facility] LDL Calculated 105(H) 0 - 99 mg/dL [facility] Blood 05/30/2022 1:22 PM EST 05/30/2022 Narrative [facility] - 05/31/2022 7:07 AM EST Performed at: 01 - [facility] [address] [id number] Batch Blender: Davi Schaefer PhD, Phone: [phone] us Mahesh Sanford MD LAB BLOOD ORDERABLES Final Resul t [facility] from Last 3 Months or Most Recently Relevant to Health Maintenance Insurance [employer] Care Teams Instructor Kindergarten Relationship Specialty Start [place] [address] [place] [address] [address] [place] [address] PCP - General Family Medicine 05/29/22
--- OUTSIDE RECORDS SUMMARY | 2024-12-24 09:28 | XMS_ITS | Encounter Summary ---
Author Organization [employer] [facility] ([place], [place], [place], [place]) Address [address] [place] [address] Care Team Providers Care Manufacturing Lab Technician Name Role Phone Mahesh Sanford MD Primary Care Provider [phone] Encounter Details Date Type Department Care Team (Late st Contact Info) Description 08/16/[address] 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 ??? Any problems you or family [...] Up to 2 hours before the procedure ? you may continue to drink clear liquids, such as water, clear fruit juice, black coffee, and plain tea. Eating and drinking restrictions Follow instructions from your health care provider about eating and drinking, which may include: ??? 8 hours before the procedure ? stop eating heavy meals or foods such as meat, fried foods, or fatty foods. ??? 6 hours before the procedure ? stop eating light meals or foods, such as toast or cereal. ??? 6 hours before the procedure ? stop drinking milk or drinks that contain milk. ??? 2 hours before the procedure ? stop drinking clear liquids. Medicines Ask your health care provider about: ??? Changing or stopping your regular medicines. This is especially important if you are taking diabetes medicines or blood thinners. ??? Taking medicines such as aspirin and ibuprofen. These medicines can thin your blood. Do not take these medicines unless your health care provider tells you to take them. ??? Taking jcmb-egj-bxufzcb medicines, vitamins, herbs, and supplements. Do not take these during the week before your procedure unless your health care provider approves them. General instructions ??? Starting 3?6 weeks before the procedure, do not use [...] provider. Document Revised: 02/11/2021 Document Reviewed: 09/12/2020 [employer] Patient Education ? 2020 [employer]. Radiology Colonoscopy, Adult, Care After This sheet gives [...] Get up to take short walks every 1?2 hours. This is important. Ask for help [...] source. ? Leave the heat on for 20?30 minutes. ? Remove the heat if your [...] soft and easy to digest. ??? Take nbfz-opb-sbkvtpk or prescription medicines only as told by your doctor. ??? Keep all follow-up visits as told by your doctor. This is important. Contact a doctor if: ??? You have blood in your poop 2?3 days after the procedure. Get help right [...] provider. Document Revised: 04/06/2020 Document Reviewed: 12/26/2019 [employer] Patient Education ? 2020 [employer]. documented in this encounter Plan of Treatment Not on file documented as of this encounter Visit Diagnoses Not on filedocumented in this encounter Care Teams Manufacturing Lab Technician Relationship Specialty Start Date End Date Mahesh Sanford MD [facility] [address] [phone] PCP - General Family Medicine 05/29/22 documented as of this encounter
--- NOTE | 2024-12-24 09:29 | CT_ITS ---
PROCEDURE INFORMATION: Exam: CT Head Without Contrast Exam date and time: 12/24/2024 9:54 AM Age: 49 years old Clinical indication: Injury or trauma; Fall; Blunt trauma (contusions or hematomas); Additional info: Syncope, hit head on wall, headache TECHNIQUE: Imaging protocol: Computed tomography of the head without contrast. Radiation optimization: All CT scans at this facility use at least one of these dose optimization techniques: automated exposure control; mA and/or kV adjustment per patient size (includes targeted exams where dose is matched to clinical indication); or iterative reconstruction. COMPARISON: No relevant prior studies available. FINDINGS: Brain: Normal. No hemorrhage. Unremarkable white matter. No mass effect. Cerebral ventricles: No ventriculomegaly. Paranasal sinuses: A retention cyst or polyp is noted in the floor of the left maxillary antrum. Mastoid air cells: Visualized mastoid air cells are well aerated. Bones: Unremarkable. No acute fracture. Soft tissues: Unremarkable. IMPRESSION: No acute intracranial process.
[2024-12-24 09:30] VITALS: BP 122/90; PULSE 59; O2SAT 97
--- NOTE | 2024-12-24 09:34 | HMH.EDGENADL ---
Discharge Plan Disposition Patient Disposition: Home, Self-Care Condition: Good Prescriptions Prescriptions: New polyethylene glycol 3350 [Miralax] 17 gram/dose powder 17 g PO DAILY Qty: 510 0RF famotidine [Pepcid] 20 mg tablet 20 mg PO DAILY Qty: 30 0RF dicyclomine 20 mg tablet 20 mg PO QID PRN (Reason: abdominal pain) Qty: 20 0RF naproxen 500 mg tablet 500 mg PO BID Qty: 20 0RF No Action tadalafil [Cialis] 2.5 mg Tablet 2.5 mg PO DAILY PRN (Reason: Sexual Activity) Rx Instructions: administer approximately 30min before sexual activity; do not use more than 1 dose per 24hrs Referrals Follow up/Referrals: Cy Sylvester II, MD [Staff Physician, Gastroenterology] - See instructions Provider,MD Jan [Primary Care Provider, Medical] - See instructions Activity Restrictions/Add. Instructions Additional Instructions/Restrictions: You were evaluated in the emergency department today. As we discussed, we feel you need close follow-up with GI. Please call them to schedule an appointment. 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 You may also take Tylenol every 4-6 hours as needed for pain. Eat a bland diet. Make sure you stay hydrated. Return to the emergency department for new or worsening symptoms. Clinical Impressions Clinical Impression: Abdominal pain, Diarrhea, Syncope, vasovagal, Lung granuloma Stand Alone Forms Stand Alone Forms: Work/School Release Instructions Patient Instructions: DI for Diarrhea and Traveler's Diarrhea -- Adult, DI for Irritable Bowel Syndrome, DI for Acute Abdominal Pain, DI for Acute Pain -- Adult Print Language Print Language: Yoruba Discharge ED Provider: Ekaterina Cornelius General Adult HPI General Chief complaint: Abdominal Pain Stated complaint: abd pain, sweats, weak, headache Time Seen by Provider: 12/24/24 09:11 Mode of Arrival: Ambulatory Source of Information: Patient and Significant Other Description of Symptoms (Recalled from ER Triage Doc. by RN): Patient presents to ED for lower abdominal pain that started last night after getting home from work. Patient states he felt the need to have a BM, went to the bathroom, and became diaphoretic and dizzy. Reports he yelled for s/o to come help, got up from toilet after having diarrhea, and had a syncopal episode where s/o caught him in her arms. Denies recollection of event. S/o reports pt hit head on the wall. History of Present Illness HPI narrative: This patient is a 57-year-old male with history of tobacco use and daily alcohol use presenting to the emergency department for evaluation with concern for lower abdominal pain. Patient states that he has had intermittent issues with abdominal pain for quite some time now, and will intermittently have severe lower abdominal cramping that is relieved by having a diarrheal bowel movement. He notes that he has gotten lightheaded, diaphoretic, and presyncopal in the past with these episodes, but last night his worst episode that he had before and he actually did pass out. His significant other states that he became very pale, diaphoretic, and he lost consciousness. She helped lower him to the ground but he did hit his head on the wall. He woke up shortly after and was neurologically intact with no seizure activity noted. He notes that he mostly gets pain in the lower abdomen/left lower quadrant that is usually relieved by diarrhea but is persistent into today. He states that he woke up this morning and tried to go to work but the pain was so bad that he was unable to. He denies any fevers, nausea, vomiting, chest pain, shortness of breath, melena, hematochezia, testicular pain or swelling, or urinary symptoms. He does note that he had a colonoscopy in the past which was normal. His only prior surgical abdominal history is a hernia repair as a very young child. Related Data Home Medications ?Medication ?Instructions ?Recorded ?Confirmed tadalafil 2.5 mg tablet 2.5 mg PO DAILY PRN Sexual Activity 12/24/24 12/24/24 Previous Rx's ?Medication ?Instructions ?Recorded dicyclomine 20 mg tablet 20 mg PO QID PRN abdominal pain 12/24/24 #20 tabs famotidine 20 mg tablet (Pepcid) 20 mg PO DAILY #30 tabs 12/24/24 naproxen 500 mg tablet 500 mg PO BID #20 tabs 12/24/24 polyethylene glycol 3350 17 17 g PO DAILY #510 grams 12/24/24 gram/dose oral powder (Miralax) Allergies Allergy/AdvReac Type Severity Reaction Status Date / Time No Known Allergies Allergy Verified 12/24/24 09:33 [facility] Disclaimer: The information contained in this section may have been updated after the patient was seen, as this information can be updated by other users. Social History Smoking Status: Former smoker alcohol intake: current current occupational status: employed Travel in the last 8 weeks?: None ROS Obtained: Yes All systems reviewed & no additional complaints except as documented Physical Exam General General appearance: alert and in no apparent distress Head Head exam: atraumatic and normocephalic Eye Eye exam: Present normal appearance, PERRL and EOMI ENT ENT exam: Present normal exam, normal oropharynx, mucous membranes moist and normal external ear exam Neck Neck exam: Present normal inspection, full ROM and trachea midline; Absent tenderness Chest Chest inspection: Present normal inspection and symmetric chest wall rise; Absent tenderness Respiratory Respiratory exam: Present normal lung sounds bilaterally; Absent respiratory distress, wheezes, stridor or accessory muscle use Cardiovascular Cardiovascular exam: Present regular rate and normal rhythm Abdominal Exam Abdominal exam: Present soft and tenderness (Lower abdomen); Absent distention, guarding, rebound or rigidity Extremities Exam Extremities exam: Present normal inspection, full ROM and normal capillary refill; Absent tenderness or edema Back Exam Back exam: Present normal inspection and full ROM; Absent tenderness Neurological Exam Neurological exam: Present alert, oriented X3, CN II-XII intact and normal gait; Absent motor sensory deficit Psychiatric Psychiatric exam: Present normal affect and normal mood Skin Skin exam: Present warm and dry Medical Decision Making Medical Records Medical records reviewed: Yes I reviewed the patient's medical records. Screening: Per USPSTF and CDC recommendations, given the prevalence of disease in our region, it is our hospital?s policy to screen for HIV and viral Hepatitis for all patients aged 18 and over and those with ongoing risk factors. Francisco Inquiry Pt receiving controlled substance: No Vital Signs: 12/24/24 09:13 12/24/24 09:17 12/24/24 09:30 Temperature 98 F Temperature Source Oral Pulse Rate 60 59 L Pulse Rate [Right Radial] 66 Respiratory Rate 18 Blood Pressure 143/98 H 122/90 Blood Pressure [Right Arm] 143/98 H Blood Pressure Mean Blood Pressure Mean [Right Arm] 113 Blood Pressure Source [Right Arm] Automatic Cuff Blood Pressure Position [Right Arm] Sitting 02 Sat by Pulse Oximetry 98 97 97 Oxygen Delivery Method Room Air Room Air Room Air 07/12/25 10:00 12/24/24 11:00 12/24/24 11:52 Temperature 98.2 F Temperature Source Pulse Rate 53 L 51 L 58 L Pulse Rate [Right Radial] Respiratory Rate 18 18 18 Blood Pressure 124/89 119/86 125/91 H Blood Pressure [Right Arm] Blood Pressure Mean 97 97 Blood Pressure Mean [Right Arm] Blood Pressure Source [Right Arm] Blood Pressure Position [Right Arm] 02 Sat by Pulse Oximetry 100 99 Oxygen Delivery Method Lab Data Lab results reviewed: Yes I reviewed the patient's lab results. Lab Results 12/24/24 09:12: Urine Color Yellow, Urine Appearance Clear, Urine pH 6.0, Ur Specific Wheeler 1.010, Urine Protein Negative, Urine Glucose (UA) Negative, Urine Ketones Negative, Urine Blood Trace-i, Urine Nitrate Negative, Urine Bilirubin Negative, Urine Urobilinogen 0.2, Ur Leukocyte Esterase Negative, Urine RBC 5-10, Urine WBC None, Ur Squamous Epith Cells Occasional, Urine Bacteria None 12/24/24 09:20: WBC 7.2, RBC 4.70, Hgb 14.6, Hct 43.0, MCV 91.5, MCH 31.1, MCHC 34.0, RDW 13.6, Plt Count 266, MPV 8.6, Neut % (Auto) 68.8, Lymph % (Auto) 22.0, Day % (Auto) 8.0, Eos % (Auto) 0.6, Baso % (Auto) 0.3, Neut # (Auto) 4.9, Lymph # (Auto) 1.6, Day # (Auto) 0.6, Eos # (Auto) 0.0, Baso # (Auto) 0.0, Sodium 137, Potassium 4.3, Chloride 98, Carbon Dioxide 28, Anion Gap 15.3 H, BUN 18, Creatinine 1.00, Estimated Creat Clear 103, Estimated GFR 79, Est GFR ( Amer) 96, Glucose 107 H, Calcium 9.8, Total Bilirubin 1.0, AST 49, ALT 43, Alkaline Phosphatase 77, Troponin I < 0.01, Total Protein 9.2 H, Albumin 5.1 H, Globulin 4.1 H, Albumin/Globulin Ratio 1.2, Lipase 50 12/24/24 09:20 12/24/24 09:20 Orders (Tests/Meds): ED MEDICATIONS Discontinued Medications Generic Name Dose Route Start Last Admin Trade Name Sophie PRN Reason Stop Dose Admin Acetaminophen 1,000 mg 12/24/24 09:29 12/24/24 09:44 Acetaminophen 1,000mg/100ml Vial IV 12/24/24 09:30 1,000 mg ONCE ONE Administration Dicyclomine HCl 20 mg 12/24/24 09:29 12/24/24 09:43 Dicyclomine 10mg Capsule PO 12/24/24 09:30 20 mg ONCE ONE Administration Lactated Ringer's 1,000 mls @ 999 mls/hr 12/24/24 09:29 12/24/24 09:41 Lactated Ringer's 1000 Ml Bag IV 12/24/24 10:29 999 mls/hr .Q1H1M ONE Administration Iopamidol 75 ml 12/24/24 09:52 12/24/24 09:55 Iopamidol-370 (76%);100ml Bottle IV 12/24/24 09:53 75 ml ONCE ONE Administration Ketorolac Tromethamine 15 mg 12/24/24 09:29 12/24/24 09:42 Ketorolac 30mg/Ml Vial IV 12/24/24 09:30 15 mg ONCE ONE Administration Sodium Chloride 10 ml 12/24/24 09:52 12/24/24 09:55 Sodium Chloride 0.9% 10ml Syr (Rad Only) IV 12/24/24 09:53 10 ml ONCE ONE Administration ORDERS Category Date Time Status CT abdomen pelvis w con Stat Cat Scan 12/24/24 09:[address] head/brain wo con Stat Cat Scan 12/24/24 09:29 Completed Complete Blood Count Auto Diff Stat Lab 12/24/24 09:20 Completed Comprehensive Metabolic Panel Stat Lab 12/24/24 09:20 Completed Lipase Stat Lab 12/24/24 09:20 Completed Trop I [Troponin I] Stat Lab 12/24/24 09:20 Completed UA [Urinalysis and Microscopic] Stat Lab 12/24/24 09:12 Completed ECG Data Tracing #1: I reviewed this ECG and interpreted as documented below: Sinus bradycardia with a ventricular to [address] changes concerning for STEMI. Incomplete right bundle-branch block. Normal intervals otherwise ECG initial impression date: 12/24/24 ECG initial impression time: 09:20 Medical Decision Narrative: In summary, this patient is a 49-year-old male presenting to the Emergency Department for evaluation of lower abdominal pain, cramping, and diarrhea. He said intermittent episodes for some time but episode was worse last night, causing syncope. Differential diagnoses considered include but are not limited to diverticulitis, IBS, IBD, colitis, vasovagal syncope, ACS, dysrhythmia, cystitis, pyelonephritis. Ruling out the most morbid conditions drove assessment. It should be noted patient's history includes tobacco use and alcohol use which are not at goal therapy. This complicates all aspects of care by increasing patient's risk for morbidity. On exam, the patient is lying in bed in no acute distress. Some lower abdominal tenderness but otherwise exam is reassuring. No testicular pain. Cardiopulmonary exam is reassuring. Vitals are reassuring on cardiac telemetry and he is afebrile and nontoxic-appearing. Workup included CBC, CMP, lipase, urinalysis, diarrhea panel, fecal calprotectin, CT abdomen pelvis with IV contrast. I independently interpreted CT scan prior to the radiologist read and noted moderate stool burden without obstructive process, no evidence of perforation. Please see their read for final interpretation. CT scan of the head is not concerning for brain bleed or traumatic injury. Labs were obtained that demonstrated reassuring CBC with no significant leukocytosis or anemia. Chemistry is reassuring and nonactionable. Radiology noted calcified lung granuloma which patient was notified of and given instructions for follow-up outpatient with PCP. Troponin negative, EKG reassuring. Urinalysis not concerning for infection. On reassessment, the patient is feeling better after administration of IV fluids, IV acetaminophen, IV Toradol, and oral Bentyl. He did not have diarrhea and was unable to provide a stool specimen here. Abdominal exam is benign and vitals remain reassuring. I feel we have excluded acute life-threatening pathology as a cause of symptoms and he is appropriate for discharge home with close PCP and GI follow-up. I feel he likely has IBS versus IBD versus abdominal cramping related to constipation/moderate stool burden and likely had vasovagal syncope as a result. He was given prescriptions for oral Bentyl, Pepcid, naproxen, and MiraLAX. He was given instructions for supportive care including bland diet and strict return precautions. He was discharged after all questions were answered Critical Care Critical Care Time Critical Care Time: No
[2024-12-24 09:35] LABS: Hematocrit 43.0 % (42.0-52.0); Hemoglobin 14.6 g/dL (14.1-18.0); Immature Granulocytes % 0.3 %; Mean Corpuscular HGB Conc 34.0 g/dL (31.8-35.4); Mean Corpuscular Hemoglobin 31.1 pg (27.0-31.2); Mean Corpuscular Volume 91.5 fl (80-94); Nucleated Red Blood Cells % 0 %; Platelet Count 266 K/mm3 (142-424); Red Blood Count 4.70 M/mm3 (4.60-6.20); Red Cell Distribution Width-SD 46.5 fL; White Blood Count 7.2 K/mm3 (4.8-10.8)
[2024-12-24 09:36] LABS: Albumin Level 5.1 g/dl (3.5-5.0); Chloride 98 mmol/L (98-107); Sodium 137 mmol/L (136-145)
[2024-12-24 09:37] LABS: Potassium 4.3 mmoL/L (3.5-5.1)
[2024-12-24 09:39] LABS: Alanine Aminotransferase 43 U/L (12-78); Albumin/Globulin Ratio 1.2 (1.1-1.8); Alkaline Phosphatase 77 U/L (38-126); Anion Gap 15.3 mEq/L (5-15); Aspartate Amino Transferase 49 U/L (17-59); Bilirubin,Total 1.0 mg/dl (0.2-1.3); Blood Urea Nitrogen 18 mg/dl (9-20); Carbon Dioxide 28 mmol/L (22.0-30.0); Creatinine Clearance Estimated 103 mL/min (50-200); Creatinine,Serum 1.00 mg/dl (0.66-1.25); Estimated Glomerular Filt Rate 79 ml/min (>60); GFR (African American) 96 ML/MIN (>60); Globulin 4.1 g/dL (1.3-3.2); Total Protein,Serum 9.2 g/dl (6.3-8.2)
[2024-12-24 09:40] LABS: Calcium 9.8 mg/dl (8.4-10.2); Glucose 107 mg/dl (74-100); Lipase 50 U/L (23-300)
[2024-12-24] MEDS: LACTATED RINGERS 1000ML 1,000 ML 999 ML IV (09:41)
[2024-12-24] MEDS: KETOROLAC 30MG/ML VIAL 15 MG IV (09:42)
[2024-12-24] MEDS: ACETAMINOPHEN 1,000MG/100ML VIAL 1000 MG IV (09:44)
--- NOTE | 2024-12-24 09:49 | PC.NURSE ---
pt going for CT at this time
[2024-12-24] MEDS: IOPAMIDOL-370 (76%);100ML BOTTLE 75 ML IV (09:55)
[2024-12-24] MEDS: SODIUM CHLORIDE 0.9% 10ML SYR (RAD ONLY) 10 ML IV (09:55)
[2024-12-24 09:56] LABS: Troponin I < 0.01 ng/ml (0.00-0.034)
[2024-12-24 10:00] VITALS: BP 124/89; PULSE 53; RESP 18; O2SAT 100
[2024-12-24 10:36] LABS: Microscopic, Urine URINE MICROSCOPIC (MICROSCOPIC)
[2024-12-24 10:45] LABS: Bilirubin,Urine Negative (Negative); Color,Urine YELLOW (Yellow); Glucose,Urine (UA) Negative (Negative); Ketones,Urine Negative (Negative); Leukocyte Esterase,Urine Negative (Negative); PH,Urine 6.0 (5.0-8.5); Protein,Urine Negative (Negative); Specific Gravity, Urine 1.010 (1.005-1.030); Urobilinogen,Urine 0.2 EU/dl (0.2)
[2024-12-24 11:00] VITALS: BP 119/86; PULSE 51; RESP 18; O2SAT 99
[2024-12-24 11:11] LABS: Squamous Epithelial Cell,Urine Occasional #/hpf (0-5)
[2024-12-24 11:52] VITALS: BP 125/91; PULSE 58; RESP 18; TEMP 36.8; O2SAT 99
== END 2024-12-24 11:52 | disposition home or self-care (01) ==
PROVIDERS: Emergency Provider Emergency Medicine
DX: R10.30 Lower abdominal pain, unspecified (principal); R55 Syncope and collapse; R00.1 Bradycardia, unspecified; J84.10 Pulmonary fibrosis, unspecified; R19.7 Diarrhea, unspecified; Z87.891 Personal history of nicotine dependence
CPT/HCPCS: 70450; 74177; 80053; 81001; 83690; 84484; 85025; 93005; 96361; 96374; 96375; 99285; J0131; J1885; J7120; Q9967

== ENCOUNTER 2025-04-20 07:59 | Day surgery (SDC) | payer OTHER, SELFPAY ==
--- NOTE | 2025-04-18 07:18 | P.HP_ITS ---
History of Present Illness *Admission Date: 04/20/25 *History of present illness: Mr. Banegas is a 49-year-old gentleman who is here for diagnostic colonoscopy. The patient has had constipation but about once monthly he will have episodes of cramps followed by diarrhea and vasovagal symptoms (lightheadedness, nausea and near syncope). The patient CT scan of the abdomen did show fecal retention/increased fecal burden. He did have a colonoscopy at [facility] in [place] 5 years ago that was normal. He reports no rectal bleeding, weight loss or family history of colon cancer. The examination is deemed medically necessary for diagnostic colonoscopy. The patient has been seen, interviewed and examined prior to the procedure by both myself and the anesthesia provider. [facility] Disclaimer: The information contained in this section may have been updated after the patient was seen, as this information can be updated by other users. Medical History No significant past medical history Family History Mother No problems noted. Other Family history of diabetes mellitus type II Family history of hypertension Social History (Updated 04/20/25 @ 08:55 by Brea Will CRNA) Smoking Status: Former smoker alcohol intake: current alcohol intake frequency: a few times a week substance use type: unknown current occupational status: employed Travel in the last 8 weeks?: None caffeine: No Have you lived/traveled outside [place] in past 30 days?: No Contact w/someone who lives/traveled outside [place] past 30 days?: No Exposure to someone with infectious disease in past 14 days?: No Do you have a fever (greater than 100.4 F or 38 C)?: No Have you tested positive for COVID-19?: No Exposed to someone with COVID-19 in past 14 days?: No Do you have a sore throat?: No Do you have a cough?: No Do you have any weakness?: No Do you have any diarrhea?: No Are you experiencing any unusual bleeding?: No Do you have any muscle aches/pain?: No Do you have any abdominal pain?: No Are you experiencing loss of taste or smell?: No Review of Systems Review of Systems Review of systems (narrative): Negative *Cardiovascular Comments: Negative *Gastrointestinal Comments: Negative *Genitourinary Comments: Negative *Musculoskeletal Comments: Negative *Neurologic Comments: Negative Meds Home Medications and Allergies Home Medications ?Medication ?Instructions ?Recorded ?Confirmed ?Type sodium sul 1.479 gram-potas ch See Rx Instructions PO PER PKG DIR 04/14/25 04/20/25 Rx 0.188 gram-magnes sul 0.225 gram colonscopy #24 tabs tablet (Sutab) New Prescriptions to Start Prescriptions: Allergies Allergy/AdvReac Type Severity Reaction Status Date / Time No Known Allergies Allergy Verified 04/20/25 08:28 Exam *Routine HEENT Exam Head: Present normocephalic Eye: Present EOMI and PERRL ENT: Present mucous membranes moist *Routine Neck Exam Neck: Present supple *Routine Respiratory Exam Respiratory: Present CTA bilaterally *Routine Cardiovascular Exam Cardiovascular: Present RRR *Routine Abdominal Exam Abdominal: Present soft and normoactive bowel sounds; Absent tenderness *Routine Rectal Exam Rectal:: deferred *Routine Genitalia Exam Genitalia:: deferred *Routine Extremities Exam Extremities: Absent cyanosis, clubbing or edema *Routine Skin Exam Skin: Present warm; Absent rash *Routine Neurological Exam Neurological: Present alert and oriented X3 Assessment and Plan *Assessment and plan (1) Change in bowel habits: Status: Acute Category: Medical Code(s): R19.4 - Change in bowel habit (2) Constipation: Status: Acute Category: Medical Code(s): K59.00 - Constipation, unspecified (3) Diarrhea: Status: Acute Category: Medical Code(s): R19.7 - Diarrhea, unspecified (4) Abdominal pain: Status: Acute Category: Medical Code(s): R10.9 - Unspecified abdominal pain Plan A/P: 1. Change in bowel habits with constipation sometimes alternating with diarrhea and associated vasovagal presyncope/syncope is the preprocedural diagnosis. He does get crampy abdominal pain. The patient will be anesthe tized/sedated using MAC sedation. The patient has been seen and examined. Cardiac and lung assessment prior to the examination is stable. Proceed with planned diagnostic colonoscopy.
[2025-04-18 12:49] VITALS: BMI 25.9
--- NOTE | 2025-04-20 06:42 | HMH.PROCNOTE ---
[facility] Procedure Note Date: 04/20/25 Time: 10:02 Procedure Note:: Colonoscopy Procedure Report: Colonoscopy Endoscopist: Cy Sylvester II, MD Referring physician: None Date of Procedure: April 20, 2025 Equipment: Olympus [id number] adult colonoscope Sedation: MAC sedation Indication: Mr. Banegas is a 49-year-old gentleman who is here for diagnostic colonoscopy. The patient has had constipation but about once monthly he will have episodes of cramps followed by diarrhea and vasovagal symptoms (lightheadedness, nausea and near syncope). The patient CT scan of the abdomen did show fecal retention/increased fecal burden. He did have a colonoscopy at [facility] in [place] 5 years ago that was normal. He reports no rectal bleeding, weight loss or family history of colon cancer. The examination is deemed medically necessary for diagnostic colonoscopy. Procedure: Prior to the procedure, a history and physical exam was performed, and patient's medications and allergies were reviewed. The risks, benefits and alternatives of the sedation and procedure were discussed with the patient. All questions were answered and informed consent was obtained. The patient was brought to the procedure room. Patient identification and proposed procedure were verified by the physician and the nurse. The patient was placed in a left lateral decubitus position and the scope was passed under direct vision. Throughout the procedure, the patient's blood pressure, pulse, and oxygen saturations were monitored continuously. The colonoscopy was accomplished without difficulty. The patient tolerated the procedure well. Findings: On digital rectal examination there was normal rectal tone. There were no external hemorrhoids. The prostate was 2+, smooth, soft, symmetric without nodules. The colonoscope was introduced through the anal canal to the rectum and advanced to the cecum. The ileocecal valve and appendiceal orifice were identified. The scope was advanced a short distance into the ileum which appeared grossly normal. The scope was then withdrawn into the colon. The cecum, ascending and transverse colon and mucosa were grossly normal. There were mildly scattered diverticuli throughout the sigmoid colon. The rectum itself was normal. Upon retroflexion within the rectum there were grade 1-2 internal hemorrhoids. The preparation was excellent throughout with [place] Preparation Score of 9. The cecal time was 10 minutes. Impression: 1. Mild left-sided diverticulosis 2. Grade 1-2 internal hemorrhoids Plan: I do feel that the patient is getting intermittent spastic diverticular disease causing cramps, diarrhea and vagal symptoms. I would encourage dietary measures and a fiber bowel regimen on a daily maintenance basis. The patient will not require screening/surveillance colonoscopy again for 10 years.
[2025-04-20 08:31] VITALS: BP 134/81; PULSE 62; RESP 18; TEMP 36.2; O2SAT 100
[2025-04-20] MEDS: LACTATED RINGERS 1000ML 1,000 ML 50 ML IV (08:47)
--- NOTE | 2025-04-20 08:54 | EXP.ANES.CKL ---
[facility] Disclaimer: The information contained in this section may have been updated after the patient was seen, as this information can be updated by other users. Medical History No significant past medical history Family History Mother No problems noted. Other Family history of diabetes mellitus type II Family history of hypertension Social History Smoking Status: Former smoker alcohol intake: current alcohol intake frequency: a few times a week substance use type: unknown current occupational status: employed Travel in the last 8 weeks?: None caffeine: No [facility] [place] Anesthesia Checklist Patient Identification Patient Identification: Arm Band and Verbal (Name & ) Structural Data Admitted From: Home Planned Operative Procedure/s: colonscopy Consent for Planned Operative Procedure(s) Verified: Yes Verified Documents: Surgical Consent and History and Physical NPO Status Verified Time NPO: 00:00 Additional verifications Anesthesia Reactions: No Previous Colonoscopy: Yes Airway Assessment Mallampati Score:: Class II Dentition: Good Dentition Neurological Assessment Level of Consciousness: Awake, Alert and Appropriate Hx Seizures: No Numbness or tingling in extremities: No Anesthesia Plan Anesthesia Risk discussed: Yes Anesthesia Plan: Verified ASA Class: II Anesthesia Type: MAC
[2025-04-20 10:02] VITALS: BP 75/52; PULSE 64; RESP 16; TEMP 36.1; O2SAT 97
[2025-04-20 10:12] VITALS: BP 90/51; PULSE 55; RESP 16; O2SAT 99
[2025-04-20 10:22] VITALS: BP 101/73; PULSE 57; RESP 18; O2SAT 98
[2025-04-20 10:32] VITALS: BP 107/78; PULSE 50; RESP 18; O2SAT 100
== END 2025-04-20 10:47 | disposition home or self-care (01) ==
PROVIDERS: Visit Provider Internal Medicine Gastroenterology
PROC: 0DJD8ZZ Inspection of Lower Intestinal Tract, Via Natural or Artificial Opening Endoscopic (ICD-10-PCS; CPT 45378; principal; 2025-04-20 09:30)
DX: K57.30 Diverticulosis of large intestine without perforation or abscess without bleeding (principal); K64.0 First degree hemorrhoids; K64.1 Second degree hemorrhoids; K59.00 Constipation, unspecified; Z87.891 Personal history of nicotine dependence
CPT/HCPCS: 45378; J2003; J2704; J7120